=== PATIENT | female | born 1950 | race Caucasian/White ===

== ENCOUNTER → 2017-06-25 | Outpatient (REF) ==
[~2017-06-25] MED LIST: ACTONEL30 MG PO; ADVAIR 100/28 DISKU1 IH; CALCIUM 600 + V1 TAB PO; MULTIPLE VITAMI1 CAP PO; PREMARIN V0.625 MG/G VG; SYNTHROID0.1 MG PO
== END ==
LOC: ZLAB.WCH 18:20
DX: Z01.89 Encounter for other specified special examinations (principal)

== ENCOUNTER → 2018-04-07 | Outpatient (REF) ==
[2018-04-07 18:25] LABS: C-REACTIVE PROTEIN < 0.5 mg/dL (0.0-0.9)
== END ==
LOC: ZLAB.WCH 18:04
PROVIDERS: Internal Medicine
DX: Z01.89 Encounter for other specified special examinations (principal)

== ENCOUNTER → 2021-06-30 | Outpatient (CLI) | payer MEDICARE ==
[2021-06-30 23:27] LABS: CLOSTRIDIUM DIFF A/B POS; CLOSTRIDIUM DIFF A/B INTERP Toxigenic C.diff POS
== END ==
LOC: ZCOL.LAB 16:12
PROVIDERS: Internal Medicine
DX: R19.7 Diarrhea, unspecified (principal)

== ENCOUNTER → 2023-02-28 | Outpatient (CLI) | payer MEDICARE | LOC: COL.RAD 09:11 | DX: S22.080A Wedge compression fracture of T11-T12 vertebra, initial encounter for closed fracture (principal); X58.XXXA Exposure to other specified factors, initial encounter | CPT/HCPCS: A9503-JZ ==